=== PATIENT | female | born 1985 | race Caucasian/White ===

== ENCOUNTER → 2017-01-12 | Outpatient (CLI) | payer OTHER ==
[2017-01-12 15:56] LABS: CH 33.9; CHCM 36.4; HCT 33.1 % (34.0-46.0); HDW 2.99; HGB 11.6 gm/dL (11.4-16.0); MCH 32.8 pg (25.0-35.0); MCHC 35.1 g/dL (31.0-37.0); MCV 93.7 fL (80.0-100.0); Mean Platelet Volume 6.8; RBC 3.53 m/uL (3.80-5.40); RDW 13.2 % (11.5-15.5); WBC 9.5 k/uL (3.8-10.6)
[2017-01-19 02:30] LABS: Cryptosporidium parvum Not detected (Not detected); Isospora belli Not detected (Not detected); Microsporidium Not detected (Not detected); Routine Ova and Parasites Not detected
== END ==
LOC: LABWHC1 15:12
PROVIDERS: ATTEND Obstetrics & Gynecology
DX: A09 Infectious gastroenteritis and colitis, unspecified (principal)
CPT/HCPCS: 36415; 85027; 87045; 87046; 87177; 87207; 87209

== ENCOUNTER 2017-03-26 10:42 | Inpatient (IN) | payer BC ==
[2017-03-26] MEDS ORDERED: METHYLERGONOVINE 0.2 MG/ML 1 ML AMP IM PRN (11:17)
[2017-03-26] MEDS ORDERED: OXYTOCIN 10 UNIT/ML 1 ML VIAL IM PRN (11:17)
[2017-03-26] MEDS ORDERED: CARBOPROST TROMETHAMINE 250 MCG/ML 1 ML AMP IM PRN (11:17)
[2017-03-26] MEDS ORDERED: TERBUTALINE 1 MG/ML VIAL SQ PRN (11:17)
[2017-03-26] MEDS ORDERED: LIDOCAINE 1% (PF) 10 MG/ML (30 ML SDV) SQ PRN (11:17)
[2017-03-26] MEDS ORDERED: BUTORPHANOL 1 MG/ML 1 ML VIAL IV PRN (11:27)
[2017-03-26 11:28] LABS: Basophils % (A) 0 %; CH 33.9; CHCM 35.3; Eosinophils % (A) 0 %; HCT 38.6 % (34.0-46.0); HDW 2.59; HGB 13.2 gm/dL (11.4-16.0); Luc # (Auto) 0.15; Luc % (Auto) 1; Lymphocytes # (A) 0.9 k/uL (1.0-4.8); Lymphocytes % (A) 6 %; MCHC 34.2 g/dL (31.0-37.0); MCV 96.6 fL (80.0-100.0); Monocytes # (A) 0.3 k/uL (0-1.0); Monocytes % (A) 2 %; Neutrophils # (A) 13.1 k/uL (1.3-7.7); Neutrophils % (A) 90 %; WBC 14.6 k/uL (3.8-10.6); WBC (Perox) 15.44
--- NOTE | 2017-03-26 11:33 | P.HPOB ---
History of Present Illness H&P Date: 03/26/17 Chief Complaint: 39-2/7 weeks, labor The patient is a 31-year-old 1 para 0 admitted at 39-2/7 weeks as established by last menstrual period and confirmed by an early ultrasound. She is admitted through triage with her cervix being 5+ centimeters dilated and in early active labor. 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 She presented to our office in approximately 29 weeks of gestation and has had an uncomplicated since. Group B strep status is negative. Obstetrical history: 1 para 0 with current statistics listed in history present illness. EDC of 03/30/2017 was established by last menstrual period and confirmed by an early ultrasound. Laboratory workup demonstrates a blood type of A+ with a negative antibody screen. Rubella status is immune. All other laboratory workup was within normal limits. One hour Glucola was normal and group B strep status is negative. Gynecologic history: Unremarkable with no history of any infections to include STDs. Review of Systems Review of systems is confined to history of present illness. Past Medical History History of Any Multi-Drug Resistant Organisms: None Reported Smoking Status: Never smoker Medications and Allergies Home Medications Medication Instructions Recorded Confirmed Type Levothyroxine Sodium 1 tab PO DAILY 03/26/17 03/26/17 History Pnv,Calcium 72/Iron/Folic Acid 1 tab PO DAILY 03/26/17 03/26/17 History [ Plus Tablet] Allergies Allergy/AdvReac Type Severity Reaction Status Date / Time No Known Allergies Allergy Verified 03/26/17 10:55 Exam - Vital Signs Vital signs: Intake and Output 03/25/17 03/26/17 03/26/17 22:59 06:59 14:59 Other: Weight 78.925 kg Patient Weight 03/27/17 06:59 Weight 78.925 kg In general, this is a well-developed, well-nourished white female in no acute distress. Her heart has a regular rhythm and rate without murmur. Her lungs are clear to auscultation bilaterally in all temple. Her abdomen is gravid, nondistended, has normal active bowel sounds, is soft, nontender, and without any palpable masses aside from uterine fundus. Her extremities are without any cyanosis, clubbing, or edema and are nontender to palpation bilaterally. Digital cervical examination demonstrates her cervix to be 5-6 cm dilated, 60-70 % effaced, the vertex in presentation at -2 station. Artificial rupture of membranes is carried out demonstrate clear fluid. Assessment and Plan (1) Active labor at term Status: Acute Plan: The patient is admitted for active management of labor. She has undergone artificial rupture of membranes demonstrate clear fluid. She will have close maternal and surveillance and expectant management will be practiced. Should she made no significant progress over the next hour or 2, Pitocin augmentation will be added. She is a good candidate for either IV or epidural analgesia, whichever she may choose.
[2017-03-26 12:08] VITALS: BMI 29.8
[2017-03-26] MEDS: LACTATED RINGERS 1,000 ML IV SCH ×2 (18:49→18:51)
[2017-03-27] MEDS ORDERED: SIMETHICONE 80 MG CHEWABLE PO PRN (03:00)
[2017-03-27] MEDS ORDERED: WITCH HAZEL 1 EACH MED..PAD TOPICAL PRN (03:00)
[2017-03-27] MEDS ORDERED: diphenhydrAMINE 50 MG/ML 1 ML VIAL IVP PRN ×2 (03:00)
[2017-03-27] MEDS ORDERED: BENZOCAINE SPRAY 57GM TOPICAL PRN (03:00)
[2017-03-27] MEDS ORDERED: Acetaminophen-Codeine 300-30mg TAB PO PRN ×2 (03:00)
[2017-03-27] MEDS ORDERED: diphenhydrAMINE 25 MG CAP PO PRN (03:00)
[2017-03-27] MEDS ORDERED: HYDROCORTISONE 2.5% RECTAL CREAM 30 GM TUBE RECTAL PRN (03:00)
[2017-03-27] MEDS ORDERED: diphenhydrAMINE 50 MG CAP PO PRN (03:00)
[2017-03-27] MEDS ORDERED: OXYTOCIN 20 UNITS/1000 ML NS 1,000 ML IV SCH (03:00)
[2017-03-27] MEDS ORDERED: ZOLPIDEM 5 MG TAB PO PRN (03:00)
[2017-03-27] MEDS ORDERED: LANOLIN CREAM 5 GM TUBE TOPICAL PRN (03:00)
--- NOTE | 2017-03-27 03:05 | P.PROBDLV ---
Vaginal Delivery Note - . Vaginal Delivery Note: The patient is a 31-year-old 1 para 0 admitted at 38-3/7 weeks in early active labor with all signs reassuring. Her has been entirely uncomplicated and group B strep status is negative. On labor and delivery, she underwent artificial rupture of membranes of clear fluid. She then made very slow progress through the active phase of labor and ultimately consented to have Pitocin augmentation added. She then progressed to complete and pushed over the course of one hour and 25 minutes to a normal spontaneous vaginal delivery of a viable male infant, weight is pending at this time, Apgars of 9 at 1 minute and 9 at 5 minutes delivered in the right occiput anterior position. The placenta was delivered spontaneously, intact, and grossly normal with a grossly normal three-vessel cord inserted approximately 1-2 cm from the margin of the placental disc. A second-degree midline episiotomy had been cut for the delivery and was noted to have extended to a partial third-degree perineal laceration. The external anal sphincter was noted to have the capsule lacerated in the superior and anterior planes. These were reapproximated in standard fashion with the [id number] stitches of 2-0 Vicryl. The remainder of the repair was carried out with 3-0 chromic catgut in standard fashion without difficulty. Estimated blood loss for the entire case was approximately 300 mL. There were no complications aside from the partial third- degree extension of the episiotomy. All sponge, instrument, and needle counts were correct. Both mother and infant are resting comfortably in recovery.
[2017-03-27] MEDS: IBUPROFEN 600 MG TAB PO PRN ×2 (03:48→16:35)
[2017-03-27] MEDS: LACTATED RINGERS 1,000 ML IV SCH (03:55)
[2017-03-27] MEDS: ACETAMINOPHEN TAB 325 MG TAB PO PRN (08:56)
[2017-03-27] MEDS: SENNOSIDES-DOCUSATE SODIUM 1 EACH TAB PO SCH ×2 (08:57→19:43)
[2017-03-27] MEDS: LEVOTHYROXINE 75 MCG TAB PO SCH (09:17)
[2017-03-27] MEDS: OXYTOCIN 20 UNITS/1000 ML NS 1,000 ML IV SCH ×2 (12:39)
[2017-03-28] MEDS: LEVOTHYROXINE 75 MCG TAB PO SCH (06:01)
[2017-03-28] MEDS: IBUPROFEN 600 MG TAB PO PRN (10:17)
--- NOTE | 2017-03-28 11:38 | P.PNOBGVD ---
Subjective - Subjective Patient reports: Reports appetite normal, Reports voiding normally, Reports pain well controlled, Reports ambulating normally : doing well, nursing well Objective - Latest Vital Signs Latest vital signs: Vital Signs Temp Pulse Resp BP Pulse Ox 03/27/17 23:36 98.2 F 115 H 18 88/61 100 03/27/17 16:00 98.6 F 119 H 18 97/65 03/27/17 12:00 98.0 F 122 H 16 123/72 99 - Exam Lungs: bilateral: normal Chest: Normal S1, Normal S2 Extremities: Present: normal Abdomen: Present: normal appearance, soft Uterus: Present: normal, firm (The uterine fundus as tonic and nontender below the umbilicus.) Assessment and Plan (1) Active labor at term Current Visit: Yes Status: Acute Code(s): APV7258 - SNOMED Code(s): 68635505 (2) Normal spontaneous vaginal delivery Narrative/Plan: We will plan to continue routine care and I anticipate discharge home tomorrow barring any complications. Current Visit: Yes Status: Acute Code(s): O80 - ENCOUNTER FOR FULL-TERM UNCOMPLICATED DELIVERY SNOMED Code(s): 37382179
[2017-03-28] MEDS: SENNOSIDES-DOCUSATE SODIUM 1 EACH TAB PO SCH (19:46)
[2017-03-28] MEDS: ACETAMINOPHEN TAB 325 MG TAB PO PRN (22:41)
[2017-03-29] MEDS: LEVOTHYROXINE 75 MCG TAB PO SCH (06:33)
[2017-03-29] MEDS: IBUPROFEN 600 MG TAB PO PRN (08:43)
[2017-03-29] MEDS: SENNOSIDES-DOCUSATE SODIUM 1 EACH TAB PO SCH (08:44)
--- NOTE | 2017-03-29 08:44 | P.DS ---
Providers Date of admission: 03/26/17 11:13 Expected date of discharge: 03/29/17 Attending physician: Urbano Chakraborty Primary care physician: Stated None - Discharge Diagnosis(es) (1) Active labor at term Current Visit: Yes Status: Acute (2) Normal spontaneous vaginal delivery Current Visit: Yes Status: Acute Hospital Course: The patient is a 31-year-old 1 para 0 admitted at 39-2/7 weeks by good dating parameters perches admitted in early active labor with all signs reassuring. Her is uncomplicated and group B strep status is negative. On labor and delivery, she had requested nonintervention as much as could be offered. She did undergo artificial rupture of membranes of clear fluid and then made very slow progress through the active phase of labor. She ultimately agreed to Pitocin augmentation at approximately 8-9 cm of dilation as she had stalled at that point for 2 hours. She then progressed to complete where after she pushed to a normal spontaneous vaginal delivery of a viable 8 lbs. 0 oz. baby boy with Apgars of 9 at 1 minute and 9 at 5 minutes. Her course was unremarkable with vital signs remaining stable and her temperature was afebrile throughout. She was deemed stable for discharge by day #2 and was discharged home to follow-up in the office in 6 weeks ' time routinely. Discharge instructions included calling for any significantly increased bleeding or foul-smelling lochia, fever abdominal pain, perineal complaints, breast complaints, or anything else that concerned her. She was additionally instructed to have nothing in vagina for at least 6 weeks time to include intercourse. She understood her instructions and agrees follow up as noted above. Discharge medications included only [id number] analgesic pain medications as well as continued vitamins as she has opted to breast-feed. Maternal blood type is A+ and rubella status is immune. Procedures: #1. Artificial rupture of membranes #2. Pitocin augmentation #3. Normal spontaneous vaginal delivery #4. Repair of third-degree extension of second- degree midline episiotomy Patient Condition at Discharge: Good Plan - Discharge Summary New Discharge Prescriptions: No Action Levothyroxine Sodium 1 tab PO DAILY Pnv,Calcium 72/Iron/Folic Acid [ Plus Tablet] 1 tab PO DAILY Discharge Medication List Levothyroxine Sodium 1 tab PO DAILY 03/26/17 [History] Pnv,Calcium 72/Iron/Folic Acid [ Plus Tablet] 1 tab PO DAILY 03/26/17 [ History] Follow up Appointment(s)/Referral(s): Urbano Chakraborty MD [STAFF PHYSICIAN] - 6 Weeks Discharge Disposition: HOME SELF-CARE
[2017-03-29 08:55] VITALS: BP 114/69; PULSE 89; RESP 16; TEMP 98
== END 2017-03-29 12:30 | disposition home or self-care (01) | DRG 775 ==
LOC: FBPOP 10:42 → 4FBP 11:13
PROVIDERS: ADMIT Obstetrics & Gynecology; ATTEND Obstetrics & Gynecology
PROC: 10E0XZZ Delivery of Products of Conception, External Approach (ICD-10-PCS; principal; 2017-03-27)
PROC: 0DQR0ZZ Repair Anal Sphincter, Open Approach (ICD-10-PCS; 2017-03-27)
PROC: 10907ZC Drainage of Amniotic Fluid, Therapeutic from Products of Conception, Via Natural or Artificial Opening (ICD-10-PCS; 2017-03-27)
PROC: 0W8NXZZ Division of Female Perineum, External Approach (ICD-10-PCS; 2017-03-27)
DX: O70.20 Third degree perineal laceration during delivery, unspecified (principal); Z37.0 Single live birth; Z3A.39 39 weeks gestation of pregnancy
CPT/HCPCS: 59025; 84112; 85025; 88307; 99213